=== PATIENT | female | born 1945 | race Caucasian/White ===

== ENCOUNTER 2019-01-18 13:04 | Emergency (ER) | payer MEDICARE, OTHER ==
[~2019-01-18] VITALS: Ht 157.5 cm; Wt 99.8 kg
[~2019-01-18 13:04] MED LIST: ALBUAER3 IN; ALPR0.25 PO; ASPI81CH43 PO; BIOT10004 PO; CALC-386 OR; CRANCAP13 OR; DILT240C59 PO; ERGO1CAP6 PO; ESCI20TA PO; FLAXOIL3 OR; FLU05NSL; FLUT250M2 INH; LEV50T PO; MONT5CHW17 PO; MULTCHW OR; PANTOPRAZOLE; SIMV-8 PO; TRIA37.577 PO; [UNRECOGNIZED DRUG - MIXTURE]
[2019-01-18] MEDS ORDERED: SODIUM CHLORIDE 0.9% 1,000 ML IV ONE (13:37)
[2019-01-18] MEDS ORDERED: KETOROLAC TROMETH 15 mg/ml 1ML VL IV ONE (13:45)
[2019-01-18] MEDS ORDERED: METOCLOPRAMIDE HCL 5MG/ml INJ 2ml VIAL IV ONE (13:45)
[2019-01-18 14:09] LABS: Basophils # (auto) 0 uL; Basophils % (auto) 0.3 % (0.0-2.0); Eosinophils # (auto) 0.2 uL; Eosinophils % (auto) 1.5 % (0.0-7.0); Hematocrit 42.6 % (36.0-46.0); Hemoglobin 14.3 g/dL (12.2-16.2); Lymphocytes # (auto) 0.7 uL; Mean Corpuscular Hemoglobin 30.6 pg (28.0-32.0); Mean Corpuscular Hgb Conc. 33.5 g/dL (32.0-36.0); Mean Corpuscular Volume 91.3 fL (80.0-100.0); Monocytes # (auto) 0.7 uL; Monocytes % (auto) 4.9 % (0.0-12.0); Neutrophils # (auto) 11.7 uL; Neutrophils % (auto) 88.3 % (37.0-80.0); Platelet Count (auto) 214 10^3/uL (140-450); Red Blood Cells 4.67 10^6/uL (4.0-5.20); Red Cell Distribution Width 13.7 % (11.8-14.3); White Blood Cell 13.3 10^3/uL (4.4-10.8)
[2019-01-18 14:41] LABS: Albumin 3.2 g/dL (3.4-5.0); Anion Gap 6 (5-15); Blood Urea Nitrogen 30 mg/dL (7-18); Calcium 8.5 mg/dL (8.5-10.1); Carbon Dioxide 28 mmol/L (21-32); Chloride 108 mmol/L (98-107); Glucose 98 mg/dL (74-106); Magnesium 2.3 mg/dL (1.6-2.6); Potassium 3.6 mmol/L (3.5-5.1); Sodium 142 mmol/L (136-145)
[2019-01-18 14:48] LABS: Alanine Aminotransferase 49 U/L (13-56); Alkaline Phosphatase 50 U/L (45-117); Aspartate Aminotransferase 50 U/L (15-37); BUN/Creatinine Ratio 34.9; Bilirubin, Total 0.4 mg/dL (0.2-1.0); GFR African American 83 mL/min; GFR Non-African American 69 mL/min; Total Protein 6.9 g/dL (6.4-8.2)
[2019-01-18] MEDS ORDERED: KETOROLAC TROMETH 15 mg/ml 1ML VL ONE (15:40)
[2019-01-18 16:25] VITALS: BP 121/64
== END 2019-01-18 16:27 | disposition home or self-care (01) ==
LOC: EDBD 13:04 → ER 13:04
DX: T17.328A Food in larynx causing other injury, initial encounter (principal); I10 Essential (primary) hypertension; S20.219A Contusion of unspecified front wall of thorax, initial encounter; S20.212A Contusion of left front wall of thorax, initial encounter; E44.1 Mild protein-calorie malnutrition; E78.5 Hyperlipidemia, unspecified; Z68.41 Body mass index [BMI] 40.0-44.9, adult; Z86.39 Personal history of other endocrine, nutritional and metabolic disease; Z88.2 Allergy status to sulfonamides; Z88.6 Allergy status to analgesic agent; Z79.899 Other long term (current) drug therapy; X58.XXXA Exposure to other specified factors, initial encounter; Y93.89 Activity, other specified; Y92.89 Other specified places as the place of occurrence of the external cause; Y99.8 Other external cause status
CPT/HCPCS: 36415; 71101; 80053; 83735; 84484; 85025; 93005; 94761; 96374; 96375; 99284; J1885; J2765; J7030

== ENCOUNTER 2019-07-01 13:53 | Emergency (ER) | payer MEDICARE, OTHER ==
[~2019-07-01] VITALS: Ht 154.9 cm; Wt 81.6 kg
[2019-07-01 14:17] VITALS: BP 160/81
[2019-07-01] MEDS ORDERED: ACETAMINOPHEN 325 MG TAB PO ONE (17:15)
== END 2019-07-01 17:20 | disposition home or self-care (01) ==
LOC: ER 13:56
DX: S00.03XA Contusion of scalp, initial encounter (principal); E78.5 Hyperlipidemia, unspecified; I10 Essential (primary) hypertension; E07.9 Disorder of thyroid, unspecified; Z88.5 Allergy status to narcotic agent; Z88.2 Allergy status to sulfonamides; W06.XXXA Fall from bed, initial encounter; Y93.89 Activity, other specified; Y92.89 Other specified places as the place of occurrence of the external cause; Y99.8 Other external cause status
CPT/HCPCS: 70450